=== PATIENT | male | born 1960 | race African-American/Black ===

== ENCOUNTER 2017-05-05 09:59 | Inpatient (IN) | payer OTHER ==
[2017-05-05 11:20] VITALS: BMI 22.3
--- NOTE | 2017-05-05 14:02 | HP ---
Admission ROS [facility] - [facility] Chief Complaint: i am here for rehab from alcohol and cociane Allergies/Adverse Reactions: Allergies Allergy/AdvReac Type Severity Reaction Status Date / Time Penicillins Allergy Severe Hives Verified 05/05/17 12:07 History of Present Illness: this 56 years old male with alcohol and cocaine dependence,for rehab,last treatment [facility]i form 04/29/17 to 05/02/17 nicotine dependence longest period of sobriety 2 years - Ebola screening Have you traveled outside of the country in the last 21 days: No Have you had contact with anyone from an Ebola affected area: No Have you been sick,other than usual withdrawal symptoms: No Do you have a fever: No - Review of Systems Constitutional: No Symptoms Reported EENT: reports: No Symptoms Reported Respiratory: reports: No Symptoms reported Cardiac: reports: No Symptoms Reported GI: reports: No Symptoms Reported : reports: No Symptoms Reported Musculoskeletal: reports: No Symptoms Reported Integumentary: reports: No Symptoms Reported Neuro: reports: No Symptoms reported Endocrine: reports: No Symptoms Reported Hematology: reports: No Symptoms Reported Psychiatric: reports: No Sypmtoms Reported, Judgement Intact, Mood/Affect Appropiate, other (schizoaffective disorder) Other Systems: Reviewed and Negative Patient History - Patient Medical History Hx Anemia: No Hx Asthma: No Hx Chronic Obstructive Pulmonary Disease (COPD): No Hx Cancer: No Hx Cardiac Disorders: No Hx Congestive Heart Failure: No Hx Hypertension: No Hx Hypercholesterolemia: No Hx Pacemaker: No HX Cerebrovascular Accident: No Hx Seizures: No Hx Dementia: No Hx Diabetes: No Hx Gastrointestinal Disorders: No Hx Liver Disease: No Hx Genitourinary Disorders: No Hx Sexually Transmitted Disorders: No Hx Renal Disease (ESRD): No Hx Thyroid Disease: No Hx Human Immunodeficiency Virus (HIV): No (last 04/09 negative) Hx Hepatitis C: No Hx Depression: Yes Hx Suicide Attempt: No Hx Schizophrenia: Yes (schizoaffective disorder) Other Medical History: no suicidal,no homicidal - Patient Surgical History Past Surgical History: Yes Hx Neurologic Surgery: No Hx Cataract Extraction: No Hx Cardiac Surgery: No Hx Lung Surgery: No Hx Breast Surgery: No Hx Breast Biopsy: No Hx Abdominal Surgery: No Hx Appendectomy: No Hx Cholecystectomy: No Hx Genitourinary Surgery: No Hx Section: No Hx Orthopedic Surgery: No Other Surgical History: tosilectomy at age of 9 years Anesthesia Reaction: No - PPD History Previous Implant?: Yes Documented Results: Negative w/o proof Implanted On Prior [facility] Admission?: No PPD to be Administered?: Yes - Smoking Cessation Smoking history: Current every day smoker Have you smoked in the past 12 months: Yes Aproximately how many cigarettes per day: 10 Hx Chewing Tobacco Use: No Initiated information on smoking cessation: Yes 'Breaking Loose' booklet given: 05/05/17 - Substance & Tx. History Hx Alcohol Use: Yes Hx Substance Use: Yes Substance Use Type: Alcohol, Cocaine Hx Substance Use Treatment: Yes ([facility] 04/29/17 to 05/02/17) - Substances Abused Crack Route: Smoking Frequency: Daily Amount used: $75-100 Age of first use: 23 Date of Last Use: 05/02/17 Alcohol-beer Route: Oral Frequency: 1-2 times per week Amount used: 3-4 (12 oz.) Age of first use: 23 Date of Last Use: 05/05/17 Family Disease History - Family Disease History Family Disease History: Other: Brother (alcohol,dsa) Admission Physical Exam [facility] - Vital Signs Vital Signs: Vital Signs - 24 hr 05/05/17 11:18 Temperature 96.4 F L Pulse Rate 62 Respiratory 20 Rate Blood Pressure 117/67 - Physical General Appearance: Yes: Within Normal Limits HEENTM: Yes: Normal ENT Inspection, MAXIM, Pharynx Normal Respiratory: Yes: Lungs Clear, Normal Breath Sounds, No Respiratory Distress Neck: Yes: Within Normal Limits, Supple, Trachea in good position Breast: Yes: Within Normal Limits Cardiology: Yes: Within Normal Limits, Regular Rhythm, Regular Rate, S1, S2 Abdominal: Yes: Within Normal Limits, Normal Bowel Sounds, Non Tender, Flat, Soft Genitourinary: Yes: Within Normal Limits Back: Yes: Within Normal Limits Musculoskeletal: Yes: Within Normal Limits Extremities: Yes: Within Normal Limits Neurological: Yes: Within Normal Limits, ignition expert II-XII NML intact, Alert, Motor Strength 5/5 Integumentary: Yes: Within Normal Limits Lymphatic: Yes: Within Normal Limits - Diagnostic (1) Alcohol dependence Current Visit: Yes Status: Acute (2) Cocaine dependence Current Visit: Yes Status: Acute (3) Nicotine dependence Current Visit: Yes Status: Acute (4) Schizoaffective disorder Current Visit: Yes Status: Acute Cleared for Admission [facility] - Detox or Rehab Claeared for Rehab Admission: Yes [facility] Breath Alcohol Content Breath Alcohol Content: 0 Urine Drug Screen - Results Drug Screen Negative: No Urine Drug Screen Results: BZO-Benzodiazepines Inpatient Rehab Admission - Initial Determination Are CD services needed?: Yes Free of communicable disease: Yes Not in need of hospitalization: Yes - Rehab Admission Criteria Poor recovery environment: Yes Comorbidities: Yes Patient is meeting Inpatient Rehab admission criteria:: Yes
[2017-05-05] MEDS ORDERED: diphenhydrAMINE HCL 50 MG CAPSULE PO PRN (14:10)
[2017-05-05] MEDS ORDERED: NICOTINE POLACRILEX 2 MG GUM BUC PRN (14:10)
[2017-05-05] MEDS ORDERED: ACETAMINOPHEN 325 MG TABLET (FP) PO PRN (14:10)
[2017-05-05] MEDS ORDERED: hydrOXYzine PAMOATE 50 MG CAPSULE (FP) PO PRN (14:10)
[2017-05-05] MEDS ORDERED: guaiFENesin/D-METHORPHAN HB 10 ML UNIT-DOSE CUPS PO PRN (14:10)
[2017-05-05] MEDS ORDERED: MAG HYDROX/AL HYDROX/SIMETH 30 ML UNIT-DOSE CUP PO PRN (14:10)
[2017-05-05] MEDS ORDERED: P-EPHED 60MG/TRIPROLIDI 2.5MG TABLET PO PRN (14:10)
[2017-05-05] MEDS ORDERED: MAGNESIUM HYDROX 2400MG/30ML ORAL SUSPENSION 30 ML CUP PO PRN (14:10)
[2017-05-05] MEDS ORDERED: MAGNESIUM CITRATE 300 ML BOTTLE PO PRN (14:10)
[2017-05-05] MEDS ORDERED: IBUPROFEN 400 MG TABLET (FP) PO PRN (14:10)
[2017-05-05] MEDS ORDERED: MENTHOL/PHENOL 1 EACH UD MM PRN (14:10)
[2017-05-05] MEDS ORDERED: LOPERAMIDE HCL 2 MG CAPSULE PO PRN (14:10)
[2017-05-05] MEDS ORDERED: TUBERCULIN PPD 5 TU/0.1ML VIAL ID ONE (17:46)
[2017-05-05 18:02] LABS: MCH 31.4 pg (25.7-33.7); MCHC 33.5 g/dl (32.0-35.9); MEAN CELL VOLUME 93.6 fl (80-96); PLATELET COUNT 224 K/MM3 (134-434); RDW 14.7 % (11.9-15.9); WHITE BLOOD COUNT 8.1 K/mm3 (4.0-10.0)
[2017-05-05 18:19] LABS: ALBUMIN 3.8 g/dl (3.4-5.0); ANION GAP 6 (8-16); CO2 31 mmol/L (21-32); CREATININE 1.2 mg/dL (0.7-1.3); GLUCOSE,RANDOM 74 mg/dL (74-106); SGOT/AST 18 U/L (15-37); SGPT/ALT 25 U/L (12-78)
[2017-05-05 18:21] LABS: ALK PHOS 81 U/L (45-117); BILIRUBIN,TOTAL 0.9 mg/dL (0.2-1.0); TOT PROT 7.2 g/dl (6.4-8.2)
--- NOTE | 2017-05-05 18:38 | PN ---
[facility] Progress Note Note: Psychiatry Attending's books salesperson note : called to enter orders for Abilify 20 mg/hs. Met with patient on .History taken : 56 y/o AA male with Schizophrenia,recently discharged from [facility]. On aripriprazole for past 6 months.Followed at [facility]. Eager to resume his medicatiion.Good historian.Stable mental status. Plan : Abilify 20 mg po hs. Side effects/benefits discussed with patient. Medication verified (pharmacy claims of 03/29/17 at [facility]). Last taken on 05/04/17 as per self-report.
[2017-05-05 20:27] LABS: URINE APPEARANCE CLEAR; URINE BILIRUBIN NEGATIVE (NEGATIVE); URINE BLOOD NEGATIVE (NEGATIVE); URINE COLOR LTYELLOW; URINE GLUCOSE (UA) NEGATIVE (NEGATIVE); URINE KETONE NEGATIVE (NEGATIVE); URINE NITRITE NEGATIVE (NEGATIVE); URINE PROTEIN NEGATIVE (NEGATIVE); URINE UROBILINOGEN NEGATIVE mg/dL (0.2-1.0)
[2017-05-05 21:33] LABS: URINE LEUK ESTERASE Negative (NEGATIVE)
[2017-05-05] MEDS: ARIPiprazole 10 MG TABLET PO SCH (21:52)
[2017-05-05] MEDS: THIAMINE HCL 100 MG TABLET (FP) PO SCH (21:52)
[2017-05-06] MEDS: PRENATAL VITAMINS W/ FOLIC ACID TABLET (FP) PO SCH (11:02)
--- NOTE | 2017-05-06 12:54 | EKG ---
Test Reason : Blood Pressure : / mmHG Vent. Rate : 052 BPM Atrial Rate : 052 BPM P-R Int : 152 ms QRS Dur : 092 ms QT Int : 392 ms P-R-T Axes : 068 030 065 degrees QTc Int : 364 ms SINUS BRADYCARDIA NON-SPECIFIC INTRA-VENTRICULAR CONDUCTION DELAY POSSIBLE LEFT ATRIAL ENLARGEMENT NO PREVIOUS ECGS AVAILABLE Confirmed by MILI RICHARDS MD ([id number]) on 05/06/2017 12:53:55 PM Referred By: RENETTA LANDAVERDE Confirmed By:MILI RICHARDS MD
[2017-05-06] MEDS: THIAMINE HCL 100 MG TABLET (FP) PO SCH (21:54)
[2017-05-06] MEDS: ARIPiprazole 10 MG TABLET PO SCH (21:54)
[2017-05-07] MEDS: PRENATAL VITAMINS W/ FOLIC ACID TABLET (FP) PO SCH (10:38)
[2017-05-07] MEDS: ARIPiprazole 10 MG TABLET PO SCH (21:45)
[2017-05-07] MEDS: THIAMINE HCL 100 MG TABLET (FP) PO SCH (21:45)
[2017-05-08] MEDS: PRENATAL VITAMINS W/ FOLIC ACID TABLET (FP) PO SCH (10:36)
--- NOTE | 2017-05-08 14:23 | HP ---
Psychiatrist Admission - Data Date of interview: 05/08/17 Admission source: S/ACI Identifying data: This is the first 5N inpatient rehabilitation admission for this 56 year old single unemployed AA male supported by [employer] and food stamps, [facility] Medical History: heart murmur, appendectomy at age of 9, smokes cigarettes 10 a day. Psychiatric History: patient reports was diagnosed as Schizoaffective disorder, first psychiatric contact at age of 54, states he started to hear voces and was depressed admited to [facility] in [place] for 4 days, treated with haldol, prolexin, no other hospitalizations, sees the psychiatrist at the [facility] and currently on Ability 20 mg po daily. Physical/Sexual Abuse/Trauma History: Denies history of abuse Vital Signs: Vital Signs - 24 hr 05/08/17 05/08/17 05/08/17 00:30 03:23 06:56 Temperature 97.7 F Pulse Rate 65 Respiratory 16 16 18 Rate Blood Pressure 100/72 Allergies/Adverse Reactions: Allergies Allergy/AdvReac Type Severity Reaction Status Date / Time Penicillins Allergy Severe Hives Verified 05/05/17 12:07 Concur with the findings of this exam: Yes - Substance Abuse/Tx History Hx Alcohol Use: Yes (started at age of 23, daily 4 cans of beer) Hx Substance Use: Yes Substance Use Type: Cocaine (started at age of 23, $75 x 2 week) Hx Substance Use Treatment: Yes Mental Status Exam - Mental Status Exam Alert and Oriented to: Time, Place, Person Cognitive Function: Grossly Intact Patient Appearance: Well Groomed Mood: Hopeful Affect: Appropriate, Mood Congruent Patient Behavior: Appropriate, Cooperative Speech Pattern: Clear, Appropriate Voice Loudness: Normal Thought Process: Goal Oriented Thought Disorder: Not Present Hallucinations: Denies Suicidal Ideation: Denies Homicidal Ideation: Denies Insight/Judgement: Fair Sleep: Fair Appetite: Fair Muscle strength/Tone: Normal Gait/Station: Normal Psychiatric Findings - Problem List ([place] 1, 2,3) (1) Alcohol dependence Current Visit: Yes Status: Acute (2) Cocaine dependence Current Visit: Yes Status: Acute (3) Nicotine dependence Current Visit: Yes Status: Acute (4) Schizoaffective disorder Current Visit: Yes Status: Acute - Initial Treatment Plan Initial Treatment Plan: will continue his current medications, monitor progress as needed.
[2017-05-08] MEDS: ARIPiprazole 10 MG TABLET PO SCH (22:03)
[2017-05-08] MEDS: THIAMINE HCL 100 MG TABLET (FP) PO SCH (22:03)
[2017-05-09] MEDS: PRENATAL VITAMINS W/ FOLIC ACID TABLET (FP) PO SCH (10:15)
[2017-05-09] MEDS: ARIPiprazole 10 MG TABLET PO SCH (21:44)
[2017-05-09] MEDS: THIAMINE HCL 100 MG TABLET (FP) PO SCH (21:44)
[2017-05-10] MEDS: PRENATAL VITAMINS W/ FOLIC ACID TABLET (FP) PO SCH (10:45)
[2017-05-10] MEDS: THIAMINE HCL 100 MG TABLET (FP) PO SCH (21:44)
[2017-05-10] MEDS: ARIPiprazole 10 MG TABLET PO SCH (21:45)
[2017-05-11] MEDS: PRENATAL VITAMINS W/ FOLIC ACID TABLET (FP) PO SCH (10:20)
--- NOTE | 2017-05-11 11:08 | PN ---
Psychiatric Progress Note Vital Signs: Vital Signs Period Temp Pulse Resp BP Sys/Ocasio Pulse Ox Last 24 Hr 97.6 F 73 15-18 137/79 Date of Session: 05/11/17 Chief Complaint:: progress update. HPI: The patient is addressing alcohol, cocaine, nicotine dependence comorbid Schizoaffective disorder. ROS: WNL Current Medications: Active Medications Generic Name Dose Route Start Last Admin Trade Name Freq PRN Reason Stop Dose Admin Acetaminophen 650 mg 05/05/17 14:10 Tylenol - PO Q4H PRN PAIN Al Hydroxide/Mg Hydroxide 30 ml 05/05/17 14:10 Mylanta Oral Suspension - PO Q6H PRN DYSPEPSIA Aripiprazole 20 mg 05/05/17 22:00 05/10/17 21:45 Abilify PO 20 mg HS KERON Administration Aripiprazole 5 mg 05/11/17 11:00 Abilify PO DAILY KERON Diphenhydramine HCl 50 mg 05/05/17 14:10 Benadryl - PO HSMR1 PRN INSOMNIA Eucalyptus/Menthol/Phenol/Sorbitol 1 each 05/05/17 14:10 Cepastat Lozenge - MM Q4H PRN SORE THROAT Guaifenesin 10 ml 05/05/17 14:10 Robitussin Dm - PO Q6H PRN COUGH Hydroxyzine Pamoate 50 mg 05/05/17 14:10 Vistaril - PO Q4H PRN AGITATION Ibuprofen 400 mg 05/05/17 14:10 Motrin - PO Q6H PRN SEVERE PAIN Loperamide HCl 4 mg 05/05/17 14:10 Imodium - PO Q6H PRN DIARRHEA Magnesium Citrate 300 ml 05/05/17 14:10 Citroma - PO Q48H PRN CONSTIPATION Magnesium Hydroxide 30 ml 05/05/17 14:10 Milk Of Magnesia - PO DAILY PRN CONSTIPATION Nicotine Polacrilex 2 mg 05/05/17 14:10 Nicorette Gum - BUC Q2H PRN NICOTINE REPLACEMENT RX Multivit/Folic Acid/Iron 1 tab 05/06/17 10:00 05/11/17 10:20 Vitamins ([facility]) - PO 1 tab DAILY KERON Administration Pseudoephedrine/Triprolidine 1 combo 05/05/17 14:10 Actifed - PO TID PRN NASAL CONGESTION Thiamine HCl 100 mg 05/05/17 22:00 05/10/17 21:44 Vitamin B1 - PO 100 mg HS KERON Administration Current Side Effect: No Lab tests ordered: No Lab tests reviewed: Yes Provider note:: Patient was seen today due to the staff concerns that patient looks like hs is decompensating, during groups time was observed with radha montano, patient denies suicidal and homicidal thoughts, he reports he sees spots sometimes, reviwed medications with the patient, will add Abilify 5 mg po am, janessa keely to monitor progress. Total face to face time:: 25 Mental Status Exam - Mental Status Exam Alert and Oriented to: Time, Place, Person Cognitive Function: Grossly Intact Patient Appearance: Well Groomed Mood: Apathetic Affect: Mood Congruent, Blunted, Constricted Patient Behavior: Cooperative Speech Pattern: Clear Voice Loudness: Normal Thought Process: Goal Oriented Hallucinations: Denies Suicidal Ideation: Denies Homicidal Ideation: Denies Insight/Judgement: Fair Sleep: Fair Appetite: Fair Muscle strength/Tone: Normal Gait/Station: Normal Psychiatric Treatment Plan - Problem List (1) Alcohol dependence Current Visit: Yes (2) Cocaine dependence Current Visit: Yes (3) Nicotine dependence Current Visit: Yes (4) Schizoaffective disorder Current Visit: Yes
[2017-05-11] MEDS: ARIPiprazole 5 MG TABLET (FP) PO SCH (11:42)
[2017-05-11] MEDS: ARIPiprazole 10 MG TABLET PO SCH (22:02)
[2017-05-11] MEDS: THIAMINE HCL 100 MG TABLET (FP) PO SCH (22:02)
[2017-05-12] MEDS: PRENATAL VITAMINS W/ FOLIC ACID TABLET (FP) PO SCH (10:57)
[2017-05-12] MEDS: ARIPiprazole 5 MG TABLET (FP) PO SCH (10:57)
[2017-05-12] MEDS ORDERED: ARIPiprazole 5 MG TABLET (FP) ONE (20:57)
[2017-05-12] MEDS: THIAMINE HCL 100 MG TABLET (FP) PO SCH (22:15)
[2017-05-12] MEDS: ARIPiprazole 10 MG TABLET PO SCH (22:16)
[2017-05-13] MEDS: ARIPiprazole 5 MG TABLET (FP) PO SCH (10:30)
[2017-05-13] MEDS: PRENATAL VITAMINS W/ FOLIC ACID TABLET (FP) PO SCH (10:31)
[2017-05-13] MEDS: ARIPiprazole 10 MG TABLET PO SCH (22:08)
[2017-05-13] MEDS: THIAMINE HCL 100 MG TABLET (FP) PO SCH (22:08)
[2017-05-14] MEDS: PRENATAL VITAMINS W/ FOLIC ACID TABLET (FP) PO SCH (10:58)
[2017-05-14] MEDS: ARIPiprazole 5 MG TABLET (FP) PO SCH (10:58)
[2017-05-14] MEDS: ARIPiprazole 10 MG TABLET PO SCH (22:02)
[2017-05-14] MEDS: THIAMINE HCL 100 MG TABLET (FP) PO SCH (22:02)
[2017-05-15] MEDS: PRENATAL VITAMINS W/ FOLIC ACID TABLET (FP) PO SCH (10:44)
[2017-05-15] MEDS: ARIPiprazole 5 MG TABLET (FP) PO SCH (10:45)
[2017-05-15] MEDS: ARIPiprazole 10 MG TABLET PO SCH (21:43)
[2017-05-15] MEDS: THIAMINE HCL 100 MG TABLET (FP) PO SCH (21:43)
[2017-05-16] MEDS: PRENATAL VITAMINS W/ FOLIC ACID TABLET (FP) PO SCH (10:39)
[2017-05-16] MEDS: ARIPiprazole 5 MG TABLET (FP) PO SCH (10:39)
[2017-05-16] MEDS: THIAMINE HCL 100 MG TABLET (FP) PO SCH (21:45)
[2017-05-16] MEDS: ARIPiprazole 10 MG TABLET PO SCH (21:45)
[2017-05-17] MEDS: ARIPiprazole 5 MG TABLET (FP) PO SCH (10:39)
[2017-05-17] MEDS: PRENATAL VITAMINS W/ FOLIC ACID TABLET (FP) PO SCH (10:39)
[2017-05-17] MEDS: THIAMINE HCL 100 MG TABLET (FP) PO SCH (21:54)
[2017-05-17] MEDS: ARIPiprazole 10 MG TABLET PO SCH (21:56)
[2017-05-18 07:24] VITALS: BP 114/62; PULSE 61; TEMP 97.4
[2017-05-18] MEDS: PRENATAL VITAMINS W/ FOLIC ACID TABLET (FP) PO SCH (09:45)
[2017-05-18] MEDS: ARIPiprazole 5 MG TABLET (FP) PO SCH (09:45)
--- NOTE | 2017-05-18 11:21 | PN ---
Psychiatric Progress Note Vital Signs: Vital Signs Period Temp Pulse Resp BP Sys/Ocasio Pulse Ox Last 24 Hr 97.4 F 61 16-18 114/62 Date of Session: 05/18/17 Chief Complaint:: discharge visit HPI: The patient addressing alcohol, cocaine, nicotine dependence comorbid Schizoaffective disorder. ROS: WNL Current Medications: Active Medications Generic Name Dose Route Start Last Admin Trade Name Freq PRN Reason Stop Dose Admin Acetaminophen 650 mg 05/05/17 14:10 Tylenol - PO Q4H PRN PAIN Al Hydroxide/Mg Hydroxide 30 ml 05/05/17 14:10 Mylanta Oral Suspension - PO Q6H PRN DYSPEPSIA Aripiprazole 20 mg 05/05/17 22:00 05/17/17 21:56 Abilify PO 20 mg HS KERON Administration Aripiprazole 5 mg 05/11/17 11:20 05/18/17 09:45 Abilify PO 5 mg DAILY KERON Administration Diphenhydramine HCl 50 mg 05/05/17 14:10 Benadryl - PO HSMR1 PRN INSOMNIA Eucalyptus/Menthol/Phenol/Sorbitol 1 each 05/05/17 14:10 Cepastat Lozenge - MM Q4H PRN SORE THROAT Guaifenesin 10 ml 05/05/17 14:10 Robitussin Dm - PO Q6H PRN COUGH Hydroxyzine Pamoate 50 mg 05/05/17 14:10 Vistaril - PO Q4H PRN AGITATION Ibuprofen 400 mg 05/05/17 14:10 Motrin - PO Q6H PRN SEVERE PAIN Loperamide HCl 4 mg 05/05/17 14:10 Imodium - PO Q6H PRN DIARRHEA Magnesium Citrate 300 ml 05/05/17 14:10 Citroma - PO Q48H PRN CONSTIPATION Magnesium Hydroxide 30 ml 05/05/17 14:10 Milk Of Magnesia - PO DAILY PRN CONSTIPATION Nicotine Polacrilex 2 mg 05/05/17 14:10 Nicorette Gum - BUC Q2H PRN NICOTINE REPLACEMENT RX Multivit/Folic Acid/Iron 1 tab 05/06/17 10:00 05/18/17 09:45 Vitamins ([facility]) - PO 1 tab DAILY KERON Administration Pseudoephedrine/Triprolidine 1 combo 05/05/17 14:10 Actifed - PO TID PRN NASAL CONGESTION Thiamine HCl 100 mg 05/05/17 22:00 05/17/17 21:54 Vitamin B1 - PO 100 mg HS KERON Administration Current Side Effect: No Lab tests ordered: No Lab tests reviewed: Yes Provider note:: Patient has completed today his treatment and met his goals, will continue to address his issues at the [facility] outpatient [facility] program, he focused on insights he gained in this treatment and ways to cope with the stressors, utilization of supports to prevent relapses. Medication (abilify) well tolerated, scripts provided, patient will f/u by his psychiatrist . Patient is stable for discharge. Total face to face time:: 20 Mental Status Exam - Mental Status Exam Alert and Oriented to: Time, Place, Person Cognitive Function: Good Patient Appearance: Well Groomed Mood: Hopeful Affect: Appropriate, Mood Congruent Patient Behavior: Appropriate, Cooperative Speech Pattern: Clear, Appropriate Voice Loudness: Normal Thought Process: Intact, Goal Oriented Thought Disorder: Not Present Hallucinations: Denies Suicidal Ideation: Denies Homicidal Ideation: Denies Insight/Judgement: Fair Sleep: Fair Appetite: Good Muscle strength/Tone: Normal Gait/Station: Normal Psychiatric Treatment Plan - Problem List (1) Alcohol dependence Current Visit: Yes (2) Cocaine dependence Current Visit: Yes (3) Nicotine dependence Current Visit: Yes (4) Schizoaffective disorder Current Visit: Yes
== END 2017-05-18 10:50 | disposition home or self-care (01) | DRG 772 ==
LOC: YASAS 09:59 → Y5N 13:17
PROVIDERS: ADMIT Psychiatry & Neurology Psychiatry; ATTEND Psychiatry & Neurology Psychiatry
PROC: HZ42ZZZ Group Counseling for Substance Abuse Treatment, Cognitive-Behavioral (ICD-10-PCS; principal; 2017-05-05)
DX: F10.20 Alcohol dependence, uncomplicated (principal); F14.20 Cocaine dependence, uncomplicated; F17.210 Nicotine dependence, cigarettes, uncomplicated; F25.9 Schizoaffective disorder, unspecified
CPT/HCPCS: 36415; 80053; 81003; 85027; 85660; 86593; 93005; 93010